=== PATIENT | female | born 1970 | race African-American/Black ===

== ENCOUNTER 2020-08-14 10:11 | Emergency (ER) | payer MEDICAID, OTHER ==
[~2020-08-14] VITALS: Ht 154.9 cm; Wt 106.6 kg
[2020-08-14 10:55] VITALS: BP 158/106
== END 2020-08-14 11:15 | disposition home or self-care (01) ==
LOC: ER 10:11
DX: J20.9 Acute bronchitis, unspecified (principal); R07.9 Chest pain, unspecified; I10 Essential (primary) hypertension; R06.02 Shortness of breath
CPT/HCPCS: 71046; 93005